=== PATIENT | female | born 1980 | race Caucasian/White ===

== ENCOUNTER 2019-06-07 21:40 | Emergency (ER) | payer BC, SELFPAY ==
[2019-06-07 22:00] VITALS: BP 131/69; PULSE 115; RESP 20; TEMP 36.9; O2SAT 98
[2019-06-07 22:14] LABS: Basophils Absolute Auto 0.1 K/mm3 (0.0-0.1); Basophils Percent Auto 1.1 % (0.2-1.2); Eosinophils Absolute Auto 0.1 K/mm3 (0-0.3); Eosinophils Percent Auto 1.2 % (0-4.4); Hematocrit 47.5 % (37.0-47.0); Hemoglobin 15.8 g/dL (12.0-15.0); Immature Granulocyte Absolute 0.03 K/mm3 (0.00-0.031); Immature Granulocyte Percent A 0.5 % (0-0.5); Lymphocytes Absolute Auto 2.63 K/mm3 (0.9-3.2); Lymphocytes Percent Auto 40.2 % (18.3-44.2); Mean Corpuscular HGB Conc 33.3 g/dl (32-36); Mean Corpuscular Hemoglobin 31.8 pg (26-34); Mean Corpuscular Volume 95.6 fl (80-100); Mean Platelet Volume 10.6 fl (7.4-10.4); Monocytes Absolute Auto 0.4 K/mm3 (0.1-0.6); Monocytes Percent Auto 5.4 % (2.6-8.5); Neutrophils Absolute Auto 3.4 K/mm3 (1.3-6.7); Neutrophils Percent Auto 51.6 % (45.5-73.1); Platelet Count Result 385 k/mm3 (150-375); Red Blood Count 4.97 M/mm3 (4.2-5.4); Red Cell Distribution Width 13.1 % (11.5-14.5); White Blood Count 6.5 K/mm3 (4.5-10.0)
--- NOTE | 2019-06-07 22:15 | ED.PSYCH ---
HPI - Psych General Chief Complaint: Psychiatric Symptoms <Yoan Ruggiero MD - Last Filed: 06/18/19 17:02> Stated Complaint: SI <Yoan Ruggiero MD - Last Filed: 06/18/19 17:02> Time Seen by Provider: 06/07/19 21:54 <Yoan Ruggiero MD - Last Filed: 06/18/19 17:02> Source: patient, EMS and RN notes reviewed <Yoan Ruggiero MD - Last Filed: 06/18/19 17:02> Mode of arrival: EMS <Yoan Ruggiero MD - Last Filed: 06/18/19 17:02> Limitations: intoxication <Yoan Ruggiero MD - Last Filed: 06/18/19 17:02> History of Present Illness HPI Narrative: A 38 y/o female presents to the ED via EMS d/t SI. She states that she was home alone and started the car while in the garage with the door closed. She reports that she stopped and then called a suicidal hotline. She notes that her then got home and talked to the hotline, so he then called EMS to have the pt brought here. She also notes that she is depressed and has previous suicidal attempts. The pt denies any fevers, chills, SOB, CP, N/V/D, ABD pain, and any other medical issues at this time. <Yoan Ruggiero MD - Last Filed: 06/18/19 17:02> MD complaint: suicidal ideation <Yoan Ruggiero MD - Last Filed: 06/18/19 17:02> Onset (ago): unknown <Yoan Ruggiero MD - Last Filed: 06/18/19 17:02> History of same: Yes <Yoan Ruggiero MD - Last Filed: 06/18/19 17:02> Associated psychiatric symptoms: depression <Yoan Ruggiero MD - Last Filed: 06/18/19 17:02> Associated symptoms: denies other symptoms <Yoan Ruggiero MD - Last Filed: 06/18/19 17:02> If self harm: has plan and has acted on plan <Yoan Ruggiero MD - Last Filed: 06/18/19 17:02> Details of plan: To start the car with the garage door closed. <Yoan Ruggiero MD - Last Filed: 06/18/19 17:02> Related Data Home Medications: Home Medications Medication Instructions Recorded Confirmed duloxetine 60 mg PO DAILY 03/04/19 03/04/19 levothyroxine [Synthroid] 150 mcg PO DAILY 03/04/19 03/04/19 propranolol 03/04/19 valacyclovir [Valtrex] 500 mg PO DAILY 03/04/19 03/04/19 <Yoan Ruggiero MD - Last Filed: 06/18/19 17:02> Allergies/Adverse Reactions: Allergies Allergy/AdvReac Type Severity Reaction Status Date / Time fluconazole Allergy Unknown HIVES Verified 08/09/18 23:42 sumatriptan AdvReac Unknown NOSE Verified 08/09/18 23:42 HICKMAN <Yoan Ruggiero MD - Last Filed: 06/18/19 17:02> Review of Systems Review of Systems: All systems reviewed & are unremarkable except as noted in HPI and below <Yoan Ruggiero MD - Last Filed: 06/18/19 17:02> Constitutional: Constitutional: Denies chills and Denies fever(s) <Yoan Ruggiero MD - Last Filed: 06/18/19 17:02> Cardiovascular: Cardiovascular: Denies chest pain <Yoan Ruggiero MD - Last Filed: 06/18/19 17:02> Respiratory: Respiratory: Denies dyspnea <Yoan Ruggiero MD - Last Filed: 06/18/19 17:02> Gastrointestinal: Gastrointestinal: Denies abdominal pain, Denies diarrhea, Denies nausea and Denies vomiting <Yoan Ruggiero MD - Last Filed: 06/18/19 17:02> Psychiatric: Psychiatric: Reports depression and Reports suicidal ideation <Yoan Ruggiero MD - Last Filed: 06/18/19 17:02> PMFSH Past Medical History Medical History: Medical History Anxiety Depression Endometriosis H/O Graves' disease treated with radioactive Iodine Hand fracture, left Hx of fracture of foot Hx: UTI (urinary tract infection) Hypothyroid Migraines Previous known suicide attempt <Yoan Ruggiero MD - Last Filed: 06/18/19 17:02> Surgical History Surgical History: Surgical History H/O foot surgery H/O: hysterectomy Hx of tubal ligation <Yoan Ruggiero MD
[2019-06-07 22:26] LABS: Alanine Aminotransferase 31 U/L (4-35); Albumin Level 4.9 g/dL (3.5-5.1); Alkaline Phosphatase 46 U/L (38-126); Aspartate Amino Transferase 31 U/L (14-36); Bilirubin,Total 0.2 mg/dL (0.2-1.3); Calcium 8.9 mg/dL (8.4-10.2); Carbon Dioxide 27 mmol/L (22-30); Chloride 105 mmol/L (98-107); Estimated Glomerular Filt Rate > 60; Ethanol 281 mg/dL (<10); Glucose 107 mg/dL (65-105); Potassium 3.9 mmol/L (3.4-5.0); Sodium 146 mmol/L (137-145)
[2019-06-07 22:33] LABS: Add Urine Microscopic? NO; Appearance Urine Clear (Clear); Bilirubin Urine Negative (Negative); Blood Urine Negative (Negative); Color Urine Colorless (Yellow); Glucose Urine UA Negative (Negative); Ketones Urine Negative (Negative); Leukocyte Esterase Ur Negative LEU/UL (Negative); Nitrate Urine Negative (Negative); Protein Urine Negative (Negative); Urobilinogen Urine Negative mg/dL (<2.0)
[2019-06-07 22:34] LABS: Specific Grav Ur 1.002 (1.001-1.035)
[2019-06-07 22:47] LABS: Blood Urea Nitrogen < 2 mg/dL (7-17)
[2019-06-07 22:48] LABS: Amphetamine Screen Urine Negative (Negative); Barbiturate Screen Urine Negative (Negative); Benzodiazepines Screen Urine Negative (Negative); Cannabinoid Screen Urine Negative (Negative); Cocaine Screen Urine Negative (Negative); Methadone Screen Urine Negative (Negative); Opiate Screen Urine Negative (Negative); Phencyclidine Screen Urine Negative (Negative)
--- NOTE | 2019-06-07 22:49 | PC.NURSE ---
PT REQUESTING TO LEAVE AND TO GET HER THINGS NOW.....EXPLAINED FOR HER SAFETY SHE HAS BEEN MADE INVOLUNTARY BY POLICE...PT MAKING ATTEMPT TO LEAVE AD SECURITY HAD ALREADY BEEN CALLED....SECURITY HERE NOW
[2019-06-07 22:57] LABS: Thyroid Stimulating Hormone 0.791 uIU/mL (0.465-4.680)
--- NOTE | 2019-06-07 23:06 | PC.NURSE ---
Pt arrived to ED15. SI precautions initiated. Pt placed in paper scrubs and all belonging inventoried. 1 on 1 sitter bedside at this time.
--- NOTE | 2019-06-07 23:08 | PC.NURSE ---
SECURITY REMAIN IN DOORWAY WHEN ASK WHAT HER NAME WAS SHE REPLIED ALICIA
--- NOTE | 2019-06-08 | PC.NURSE ---
pt talking loudly, using profanity. this rn instructs pt to speak quieter if shes going to use language due to other pt's hearing her.pt states she understands. pt has no requests at this time.
--- NOTE | 2019-06-08 01:00 | PC.NURSE ---
pt asks this rn if she can close the door due to there being a window on the door. she states she wants to rest but cant since the light. this rn explains to pt that policy states i can't close the door due to pt safety. pt asks if i could atleast crack it, i aplogize and state i can't. pt states she understands. this rn shuts light off at this time.
[2019-06-08] MEDS: IBUPROFEN 600 MG TABLET PO (01:26)
--- NOTE | 2019-06-08 01:26 | PC.NURSE ---
pt asking this rn for paperwork telling her what her legal rights are. charge nurse notified. charge nurse speaking to [place] ocasio at this time. pt given 600mg ibuprofen for headache at this time
--- NOTE | 2019-06-08 01:49 | PC.NURSE ---
again speaking with pt. requesting her stuff now pt is tearful wanting to know her rights...wanting to leave now...again speaking with pt in regards to her safety and that per officer petition that she wanted to kill herself ..car in garage running with garage door closed... i don't give a fuck ...get my stuff....placed call out to overnight houseperson and she will be down when she can...again had pt. review petition by the officer and that we can redraw alcohol around 0630 once that is below 80 we can call crisis to come out...pt not happy with this information
--- NOTE | 2019-06-08 02:00 | PC.NURSE ---
pt talking w/ dr. huber in hallway at this time. pt visually upset with having to stay, still talking about how we are violating her rights.
--- NOTE | 2019-06-08 02:54 | PC.NURSE ---
pt ask if she could walk with server security administrator around nursing station...told her yes...since she has been cooperating
--- NOTE | 2019-06-08 03:00 | PC.NURSE ---
pt walking around outside of nurses station w/ sitter. charge nurse christian darden instructed pt it was okay as long as the sitter walks with her. pt being cooperative at this time. no requests.
--- NOTE | 2019-06-08 03:58 | PC.NURSE ---
pt still ambulating around nurses station w/ sitter/security. pt calm and cooperative at this time. no requests.
[2019-06-08 04:42] VITALS: BP 128/88; PULSE 101; RESP 20; O2SAT 99
--- NOTE | 2019-06-08 04:43 | PC.NURSE ---
pt in room at this time being calm and cooperative. sitter at bedside w/ pt. no requests at this time.
--- NOTE | 2019-06-08 05:50 | PC.NURSE ---
pt resting in room at this time. sitter at bedside.
--- NOTE | 2019-06-08 06:49 | PC.NURSE ---
this RN called cafeteria for psych precautions tray sent to floor. non licensed operator in room repeating ethanol lvl.
[2019-06-08 07:07] LABS: Ethanol 133 mg/dL (<10)
--- NOTE | 2019-06-08 07:12 | PC.NURSE ---
ASSUMED CARE OF PT, PT IS RESTING ON STRETCHER W/ LIGHTS DIMMED - EQUAL CHEST RISE AND FALL. SITTER AT BEDSIDE.
[2019-06-08 08:25] VITALS: BP 107/64; PULSE 110; RESP 15; O2SAT 97
[2019-06-08 10:09] LABS: Ethanol 84 mg/dL (<10)
--- NOTE | 2019-06-08 11:17 | PC.NURSE ---
CALLED CRISIS, SPOKE TO GARCIA, WILL SEND SOMEONE OUT FOR PT EVAL.
[2019-06-08 12:38] VITALS: BP 118/74; PULSE 106; RESP 14; O2SAT 97
--- NOTE | 2019-06-08 12:39 | PC.NURSE ---
Per Sita with Crisis she will go to her office and work on involuntary placement for pt. Pt has breakfast food tray in room, untouched. Pt states she does not want to eat anything. This RN offered lunch tray w/ any certain foods pt may like - pt declined. Pt is alert and upright on stretcher. Pt is calm and cooperative. Lights dimmed. Sitter at bedside.
--- NOTE | 2019-06-08 14:10 | PC.NURSE ---
per kirby with crisis, the pt records were faxed to [facility] ([phone]) and to [facility] ([phone]).
--- NOTE | 2019-06-08 14:52 | PC.NURSE ---
edvin with [facility] called for pt history. he states information will be reviewed and will call back at later time today with determination of admission/denial.
--- NOTE | 2019-06-08 15:03 | PC.NURSE ---
[facility] informed that pt replied yeah, whatever when asked if she would willingly sign admit papers for facility. forms will be faxed to [facility] at this time.
[2019-06-08 15:50] VITALS: BP 127/82; PULSE 112; RESP 22; O2SAT 100
[2019-06-08] MEDS: LORAZEPAM 1 MG TABLET PO (16:56)
[2019-06-08 18:17] VITALS: BP 131/71; PULSE 95; RESP 16; O2SAT 99
--- NOTE | 2019-06-08 19:44 | PC.NURSE ---
called [facility] [phone], intake nurse stated they don't have enough staff at this time. they will call back with a bed when more staff comes in.
--- NOTE | 2019-06-08 21:08 | PC.NURSE ---
per crisis [facility] unable to accept pt due to staff shortage
--- NOTE | 2019-06-08 22:09 | ECG_ITS ---
Measurements Intervals [place] Rate: 103 P: 22 NV: 138 QRS: -4 QRSD: 72 T: 17 QT: 333 QTc: 438 Interpretive Statements SINUS TACHYCARDIA BORDERLINE ECG Electronically Signed On 06-09-2019 6:56:08 BOOKKEEPER RECEPTIONIST by Shola Thompson D.O.
[2019-06-08 22:22] VITALS: BP 117/75; PULSE 96; RESP 16; TEMP 36.8; O2SAT 100
[2019-06-08 22:28] LABS: Magnesium 1.6 mg/dL (1.6-2.3)
--- NOTE | 2019-06-08 22:52 | PC.NURSE ---
requested pt documents/chart faxed to [facility] in [place], [place]
--- NOTE | 2019-06-08 23:35 | PC.NURSE ---
pt now excepted at [facility], report given to victorina at [phone]
--- NOTE | 2019-06-08 23:42 | PC.NURSE ---
Called [facility] to transport patient to [facility]. ETA [phone].
[2019-06-08] MEDS: LORAZEPAM 0.5 MG TABLET (23:54)
== END 2019-06-09 00:26 ==
PROVIDERS: Emergency Medicine; Emergency Provider Emergency Medicine
DX: R45.851 Suicidal ideations (principal); F10.120 Alcohol abuse with intoxication, uncomplicated; Y90.4 Blood alcohol level of 80-99 mg/100 ml; F41.9 Anxiety disorder, unspecified; F32.9 Major depressive disorder, single episode, unspecified; E03.9 Hypothyroidism, unspecified
CPT/HCPCS: 36415; 80053; 80307; 81003; 81025; 83735; 84443; 85025; 93005; 99285; A9270

== ENCOUNTER 2020-02-07 15:16 | Emergency (ER) | payer BC, SELFPAY ==
[2020-02-07 15:22] VITALS: BP 119/83; PULSE 113; RESP 16; TEMP 36.6; O2SAT 98
--- NOTE | 2020-02-07 15:32 | ED.WOUNDLAC ---
HPI - Wound/Laceration General Chief Complaint: Wound/Laceration Stated Complaint: R HAND LACERATION Source: patient Mode of arrival: ambulatory History of Present Illness HPI narrative: 39-year-old female presents to [facility] care with complaints of laceration to the palmar aspect of base of right thumb which occurred prior to arrival. Patient reports that she sustained a laceration on a glass tabletop. Patient reports that her last tetanus shot was within the past 5 years. Patient denies decreased range of motion, heavy bleeding, bruising, swelling or erythema. Onset (ago): hour(s) (1) Patient tetanus UTD: Yes Context: accidental Associated symptoms: none Related Data Home Medications Medication Instructions Recorded Confirmed levothyroxine [Synthroid] 150 mcg PO DAILY 03/04/19 03/04/19 valacyclovir [Valtrex] 500 mg PO DAILY 03/04/19 03/04/19 venlafaxine [Effexor XR] 150 mg PO DAILY 02/07/20 02/07/20 Allergies Allergy/AdvReac Type Severity Reaction Status Date / Time fluconazole Allergy Unknown HIVES Verified 02/07/20 15:28 sumatriptan AdvReac Unknown NOSE Verified 02/07/20 15:28 HICKMAN Review of Systems Constitutional: Constitutional: Denies chills, Denies fever(s) and Denies weakness ENT: Denies dysphagia, Denies dizziness, Denies epistaxis and Denies sore throat Cardiovascular: Cardiovascular: Denies chest pain, Denies rapid heart rate and Denies radiating jaw, neck or arm pain Gastrointestinal: Gastrointestinal: Denies abdominal pain, Denies diarrhea, Denies nausea and Denies vomiting Integumentary/Breasts: Skin/Breast: Denies rash Comments: laceration to base of right thumb PMFSH Past Medical History Medical History Anxiety Depression Endometriosis H/O Graves' disease treated with radioactive Iodine Hand fracture, left Hx of fracture of foot Hx: UTI (urinary tract infection) Hypothyroid Migraines Previous known suicide attempt Surgical History Surgical History H/O foot surgery H/O: hysterectomy Hx of tubal ligation Social History Social History Tobacco type: e-cigarettes/vaping Substance use: never Substance use type: does not use Gender identity (if verbalized by the patient): Female Comments At time of signature, I agree with nursing past medical, surgical, social and family history. There is no relevant family history pertinent to the presenting complaint. Exam Const: General: no acute distress and alert Nutritional Appearance: well nourished Orientation/consciousness: patient oriented x3 Neck: Neck: normal visual inspection Resp: Effort & Inspection: normal respiratory effort Auscultation: clear to auscultation bilaterally Cardio: Rate: regular rate, not bradycardic and not tachycardic Rhythm: regular rhythm and regular rhythm Heart sounds: no murmurs Skin: General skin exam: normal color, no jaundice and no pallor Rashes: no rashes Other: 1 cm superficial laceration noted to the palmar aspect of base of right thumb. There is no active bleeding, bruising or swelling noted. Neuro: General: patient oriented x3, moves all extremities, no meningeal signs and no focal motor deficits Extrem: General: no clubbing, cyanosis or edema, no pedal edema and no edema Other: Full range of motion noted to right hand. There is a superficial 1 cm laceration noted to palmar aspect of base of right thumb. Psych: Appearance: grossly normal Mental Status: mental status grossly normal Affect: normal affect Attitude: cooperative Thought content: Yes Normal thought content present Course Vital Signs Vital signs: Vital Signs Temperature 36.6 C 02/07/20 15:22 Pulse Rate 113 H 02/07/20 15:22 Respiratory Rate 16 02/07/20 15:22 Blood Pressure 119/83 02/07/20 15:22 Pulse Oximetry 98 02/07/20 15:22
== END 2020-02-07 15:53 | disposition home or self-care (01) ==
PROVIDERS: Emergency Provider Nurse Practitioner Family; PCP Family Medicine
DX: S61.411A Laceration without foreign body of right hand, initial encounter (principal); W25.XXXA Contact with sharp glass, initial encounter; F17.200 Nicotine dependence, unspecified, uncomplicated; E03.9 Hypothyroidism, unspecified; F41.9 Anxiety disorder, unspecified; F32.9 Major depressive disorder, single episode, unspecified; N80.9 Endometriosis, unspecified
CPT/HCPCS: 12001; 99212; G0463

== ENCOUNTER 2021-06-26 10:59 | Outpatient (CLI) | payer BC, SELFPAY | END 2021-06-26 11:00 | disposition home or self-care (01) | LOC: ANHAUDASC 11:00 | PROVIDERS: PCP Family Medicine; Visit Provider Otolaryngology | DX: H93.13 Tinnitus, bilateral (principal) | CPT/HCPCS: 92557; 92567 ==

== ENCOUNTER 2021-09-27 08:15 | Outpatient (CLI) | payer BC, SELFPAY ==
--- NOTE | ~2021-09-27 | XR_ITS ---
EXAMINATION: XR barium swallow DATE: 09/27/2021 08:51 INDICATION: Aspiration of food and liquids. TECHNIQUE: The patient drank thick barium, gas-producing crystals, and thin barium. Fluoroscopy of th e hypopharynx and esophagus was performed. Fluoroscopy exposure time was 0.4 minutes. The total numbe r of images was 476. The dose-area product was 0.524 Gy-cm^2. COMPARISON: None. FINDINGS: There is no mass or stricture of the esophagus. Esophageal motility is normal. There is no hiatal hernia. There was no gastroesophageal reflux. There are surgical changes in cervical spine, li konrad disc replacements. IMPRESSION: 1. Normal esophagram. Reviewed, dictated and finalized at location A. IMPRESSION: 1. Normal esophagram.
== END 2021-09-27 08:16 | disposition home or self-care (01) ==
LOC: ANHIMG 08:16
PROVIDERS: PCP Family Medicine; Visit Provider Family Medicine
DX: T17.298A Other foreign object in pharynx causing other injury, initial encounter (principal)
CPT/HCPCS: 74220